=== PATIENT | female | born 1990 | race Caucasian/White ===

== ENCOUNTER 2016-03-27 14:47 | Inpatient (IN) | payer OTHER ==
[2016-03-27 15:48] LABS: Benzodiazepine Urine Screen None Detected (None Detect)
[2016-03-27 15:51] LABS: Hematocrit 41 % (35-47); Hemoglobin 14.5 g/dl (12.0-16.0); Mean Corpuscular HGB Conc 35 g/dl (31-36); Mean Corpuscular Hemoglobin 32 pg (27-31); Mean Corpuscular Volume 90 fL (80-97); Mean Platelet Volume 8 um3 (7.4-10.4); Red Blood Count 4.56 10^6/ul (4.0-5.4); Red Cell Distribution Width 12 % (10.5-15); White Blood Count 5.8 10^3/ul (3.5-10.8)
[2016-03-27 15:55] LABS: Urine Bacteria 1+ (Absent); Urine Bilirubin Negative (Negative); Urine Glucose Negative (Negative); Urine Nitrite Negative (Negative)
[2016-03-27] MEDS ORDERED: Ibuprofen TAB* 600 MG PO ONE (16:03)
[2016-03-27 16:05] LABS: ALT 13 U/L (7-52); AST 12 U/L (13-39); Albumin 4.7 g/dL (3.2-5.2); Alkaline Phosphatase 40 U/L (34-104); Anion Gap 7 mmol/L (2-11); BUN/Creatinine Ratio 10.3 (8-20); Blood Urea Nitrogen 6 mg/dL (6-24); CO2 Carbon Dioxide 29 mmol/L (22-32); Calcium 9.3 mg/dL (8.6-10.3); Chloride 103 mmol/L (101-111); EGFR African American 161.6 (>60); EGFR Non-African American 125.7 (>60); Globulin 2.5 g/dL (2-4); Glucose 112 mg/dL (70-100); Sodium 139 mmol/L (133-145); Total Protein 7.2 g/dL (6.4-8.9)
[2016-03-27 16:25] LABS: Acetaminophen < 15 mcg/mL; Alcohol < 10 mg/dL (<10); Salicylate < 2.50 mg/dL (<30)
[2016-03-27 16:29] LABS: TSH (Thyroid Stimulating Horm) 0.98 mcIU/mL (0.34-5.60)
--- NOTE | 2016-03-27 16:44 | ED ---
Psychiatric Complaint - HPI Summary HPI Summary: Patient presents with feeling of depression. She does not clearly define for me what started this or what exactly she feels sad about. She mentions feeling like "others" are picking on her and she feels that she should be able to fix what is wrong. She denies actual SI or HI. She had a therapist years ago and is not taking daily medication, although she has prescriptions for adderall and clonipin. - History Of Current Complaint Hx Obtained From: Patient ?: No Onset/Duration: Gradual Onset Timing: Constant Severity Initially: Severe Severity Currently: Severe Character: Depressed Aggravating Factor(s): Nothing Alleviating Factor(s): Nothing Associated Signs And Symptoms: Positive: Sleep Disturbance Related History: Positive For: Prior Psychiatric Issues <Sharan Alvarez - Last Filed: 03/27/16 16:40> <Ghanshyam Bazan - Last Filed: 03/29/16 09:04> - History Of Current Complaint Chief Complaint: EDMentalHealth Time Seen by Provider: 03/27/16 15:08 - Allergies/Home Medications Allergies/Adverse Reactions: Allergies Allergy/AdvReac Type Severity Reaction Status Date / Time No Known Allergies Allergy Verified 03/27/16 15:04 PMH/Surg Hx/FS Hx/Imm Hx Psychiatric History: Reports: Hx Depression Infectious Disease History: No Infectious Disease History: Denies: Traveled Outside the [place] in Last 30 Days - Family History Known Family History: Positive: None - Social History Lives: With Family Alcohol Use: Occasionally Substance Use Type: Reports: Cocaine, Marijuana Substance Use Comment - Amount & Last Used: hx of use Smoking Status (MU): Current Every Day Smoker Cessation Counseling: Patient Advised to Stop <Sharan Alvarez - Last Filed: 03/27/16 16:40> Review of Systems Positive: Depressed All Other Systems Reviewed And Are Negative: Yes <Sharan Alvarez - Last Filed: 03/27/16 16:40> Physical Exam Triage Information Reviewed: Yes Vital Signs On Initial Exam: Initial Vitals Temp Pulse Resp BP Pulse Ox 99.7 F 81 16 122/84 100 03/27/16 14:57 03/27/16 14:57 03/27/16 14:57 03/27/16 14:57 03/27/16 14:57 Vital Signs Reviewed: Yes Appearance: Positive: Well-Appearing, No Pain Distress, Thin Skin: Positive: Warm, Skin Color Reflects Adequate Perfusion, Dry, Soft Head/Face: Positive: Normal Head/Face Inspection Eyes: Positive: EOMI, KAT, Conjunctiva Clear ENT: Positive: Hearing grossly normal Neck: Positive: Supple, Nontender, No Lymphadenopathy Respiratory/Lung Sounds: Positive: Clear to Auscultation, Breath Sounds Present Cardiovascular: Positive: Tachycardia Abdomen Description: Positive: Nontender, Soft Bowel Sounds: Positive: Present Musculoskeletal: Positive: Strength/ROM Intact. Negative: Edema Left, Edema Right Neurological: Positive: Sensory/Motor Intact, Alert, Oriented to Person Place, Time, NV Bundle Intact Distally, Normal Gait Psychiatric: Positive: Depressed AVPU Assessment: Alert - Transfer Coma Scale Coma Scale Total: 15 <Sharan Alvarez - Last Filed: 03/27/16 16:40> Vital Signs On Initial Exam: Initial Vitals Temp Pulse Resp BP Pulse Ox 99.7 F 81 16 122/84 100 03/27/16 14:57 03/27/16 14:57 03/27/16 14:57 03/27/16 14:57 03/27/16 14:57 <Ghanshyam Bazan - Last Filed: 03/29/16 09:04> Diagnostics - Vital Signs Vital Signs Temp Pulse Resp BP Pulse Ox 03/27/16 14:57 99.7 F 81 16 122/84 100 - Laboratory Lab Results: Lab Results 03/27/16 03/27/16 03/27/16 Range/Units 15:20 15:20 15:36 WBC 5.8 (3.5-10.8) 10^3/ul RBC 4.56 (4.0-5.4) 10^6/ul Hgb 14.5 (12.0-16.0) g/dl Hct 41 (35-47) % MCV 90 (80-97) fL MCH 32 H (27-31) pg MCHC 35 (31-36) g/dl RDW 12 (10.5-15) % Plt Count 174 (150-450) 10^3/ul MPV 8 (7.4-10.4) um3 Neut % (Auto) 55.9 (38-83) % Lymph % (Auto) 32.8 (25-47) % [place] % (Auto) 8.1 (1-9) % Eos % (Auto) 2.6 (0-6) % Baso % (Auto) 0.6 (0-2) % Absolute Neuts (auto) 3.3 (1.5-7.7) 10^3/ul Absolute Lymphs (auto) 1.9 (1.0-4.8) 10^3/ul Absolute Monos (auto) 0.5 (0-0.8) 10^3/ul Absolute Eos (auto) 0.2 (0-0.6) 10^3/ul Absolute Basos (auto) 0 (0-0.2) 10^3/ul Absolute Nucleated RBC 0 10^3/ul Nucleated RBC % 0 Sodium (133-145) mmol/L Potassium (3.5-5.0) mmol/L Chloride (101-111) mmol/L Carbon Dioxide (22-32) mmol/L Anion Gap (2-11) mmol/L BUN (6-24) mg/dL Creatinine (0.51-0.95) mg/dL Est GFR ( Amer) (>60) Est GFR (Non-Af Amer) (>60) BUN/Creatinine Ratio (8-20) Glucose (70-100) mg/dL Calcium (8.6-10.3) mg/dL Total Bilirubin (0.2-1.0) mg/dL AST (13-39) U/L ALT (7-52) U/L Alkaline Phosphatase (34-104) U/L Total Protein (6.4-8.9) g/dL Albumin (3.2-5.2) g/dL Globulin (2-4) g/dL Albumin/Globulin Ratio (1-3) TSH (0.34-5.60) mcIU/mL Urine Color Yellow Urine Appearance Clear Urine pH 8.0 (5-9) Ur Specific [place] 1.005 L (1.010-1.030) Urine Protein Negative (Negative) Urine Ketones Negative (Negative) Urine Blood 3+ H (Negative) Urine Nitrate Negative (Negative) Urine Bilirubin Negative (Negative) Urine Urobilinogen Negative (Negative) Ur Leukocyte Esterase 1+ H (Negative) Urine WBC (Auto) 1+(6-10/hpf) H (Absent) Urine RBC (Auto) 3+(>10/hpf) H (Absent) Ur Squamous Epith Cells Present H (Absent) Urine Bacteria 1+ H (Absent) Urine Glucose Negative (Negative) Salicylates (<30) mg/dL Urine Opiates Screen None detected (None Detect) Acetaminophen mcg/mL Ur Barbiturates Screen None detected (None Detect) Ur Phencyclidine Scrn None detected (None Detect) Ur Amphetamines Screen None detected (None Detect) U Benzodiazepines Scrn None detected (None Detect) Urine Cocaine Screen None detected (None Detect) U Cannabinoids Screen None detected (None Detect) Serum Alcohol (<10) mg/dL 03/27/16 Range/Units 15:36 WBC (3.5-10.8) 10^3/ul RBC (4.0-5.4) 10^6/ul Hgb (12.0-16.0) g/dl Hct (35-47) % MCV (80-97) fL MCH (27-31) pg MCHC (31-36) g/dl RDW (10.5-15) % Plt Count (150-450) 10^3/ul MPV (7.4-10.4) um3 Neut % (Auto) (38-83) % Lymph % (Auto) (25-47) % [place] % (Auto) (1-9) % Eos % (Auto) (0-6) % Baso % (Auto) (0-2) % Absolute Neuts (auto) (1.5-7.7) 10^3/ul Absolute Lymphs (auto) (1.0-4.8) 10^3/ul Absolute Monos (auto) (0-0.8) 10^3/ul Absolute Eos (auto) (0-0.6) 10^3/ul Absolute Basos (auto) (0-0.2) 10^3/ul Absolute Nucleated RBC 10^3/ul Nucleated RBC % Sodium 139 (133-145) mmol/L Potassium 4.0 (3.5-5.0) mmol/L Chloride 103 (101-111) mmol/L Carbon Dioxide 29 (22-32) mmol/L Anion Gap 7 (2-11) mmol/L BUN 6 (6-24) mg/dL Creatinine 0.58 (0.51-0.95) mg/dL Est GFR ( Amer) 161.6 (>60) Est GFR (Non-Af Amer) 125.7 (>60) BUN/Creatinine Ratio 10.3 (8-20) Glucose 112 H (70-100) mg/dL Calcium 9.3 (8.6-10.3) mg/dL Total Bilirubin 0.80 (0.2-1.0) mg/dL AST 12 L (13-39) U/L ALT 13 (7-52) U/L Alkaline Phosphatase 40 (34-104) U/L Total Protein 7.2 (6.4-8.9) g/dL Albumin 4.7 (3.2-5.2) g/dL Globulin 2.5 (2-4) g/dL Albumin/Globulin Ratio 1.9 (1-3) TSH 0.98 (0.34-5.60) mcIU/mL Urine Color Urine Appearance Urine pH (5-9) Ur Specific [place] (1.010-1.030) Urine Protein (Negative) Urine Ketones (Negative) Urine Blood (Negative) Urine Nitrate (Negative) Urine Bilirubin (Negative) Urine Urobilinogen (Negative) Ur Leukocyte Esterase (Negative) Urine WBC (Auto) (Absent) Urine RBC (Auto) (Absent) Ur Squamous Epith Cells (Absent) Urine Bacteria (Absent) Urine Glucose (Negative) Salicylates < 2.50 (<30) mg/dL Urine Opiates Screen (None Detect) Acetaminophen < 15 mcg/mL Ur Barbiturates Screen (None Detect) Ur Phencyclidine Scrn (None Detect) Ur Amphetamines Screen (None Detect) U Benzodiazepines Scrn (None Detect) Urine Cocaine Screen (None Detect) U Cannabinoids Screen (None Detect) Serum Alcohol < 10 (<10) mg/dL Result Diagrams: 03/27/16 15:36 03/27/16 15:36 Lab Statement: Any lab studies that have been ordered have been reviewed, and results considered in the medical decision making process. <Sharan Alvarez - Last Filed: 03/27/16 16:40> - Vital Signs Vital Signs Temp Pulse Resp BP Pulse Ox 03/27/16 17:01 98.9 F 71 16 110/69 100 03/27/16 14:57 99.7 F 81 16 122/84 100 - Laboratory Lab Results: Lab Results 03/27/16 03/27/16 03/27/16 Range/Units 15:20 15:20 15:36 WBC 5.8 (3.5-10.8) 10^3/ul RBC 4.56 (4.0-5.4) 10^6/ul Hgb 14.5 (12.0-16.0) g/dl Hct 41 (35-47) % MCV 90 (80-97) fL MCH 32 H (27-31) pg MCHC 35 (31-36) g/dl RDW 12 (10.5-15) % Plt Count 174 (150-450) 10^3/ul MPV 8 (7.4-10.4) um3 Neut % (Auto) 55.9 (38-83) % Lymph % (Auto) 32.8 (25-47) % [place] % (Auto) 8.1 (1-9) % Eos % (Auto) 2.6 (0-6) % Baso % (Auto) 0.6 (0-2) % Absolute Neuts (auto) 3.3 (1.5-7.7) 10^3/ul Absolute Lymphs (auto) 1.9 (1.0-4.8) 10^3/ul Absolute Monos (auto) 0.5 (0-0.8) 10^3/ul Absolute Eos (auto) 0.2 (0-0.6) 10^3/ul Absolute Basos (auto) 0 (0-0.2) 10^3/ul Absolute Nucleated RBC 0 10^3/ul Nucleated RBC % 0 Sodium (133-145) mmol/L Potassium (3.5-5.0) mmol/L Chloride (101-111) mmol/L Carbon Dioxide (22-32) mmol/L Anion Gap (2-11) mmol/L BUN (6-24) mg/dL Creatinine (0.51-0.95) mg/dL Est GFR ( Amer) (>60) Est GFR (Non-Af Amer) (>60) BUN/Creatinine Ratio (8-20) Glucose (70-100) mg/dL Calcium (8.6-10.3) mg/dL Total Bilirubin (0.2-1.0) mg/dL AST (13-39) U/L ALT (7-52) U/L Alkaline Phosphatase (34-104) U/L Total Protein (6.4-8.9) g/dL Albumin (3.2-5.2) g/dL Globulin (2-4) g/dL Albumin/Globulin Ratio (1-3) TSH (0.34-5.60) mcIU/mL Urine Color Yellow Urine Appearance Clear Urine pH 8.0 (5-9) Ur Specific [place] 1.005 L (1.010-1.030) Urine Protein Negative (Negative) Urine Ketones Negative (Negative) Urine Blood 3+ H (Negative) Urine Nitrate Negative (Negative) Urine Bilirubin Negative (Negative) Urine Urobilinogen Negative (Negative) Ur Leukocyte Esterase 1+ H (Negative) Urine WBC (Auto) 1+(6-10/hpf) H (Absent) Urine RBC (Auto) 3+(>10/hpf) H (Absent) Ur Squamous Epith Cells Present H (Absent) Urine Bacteria 1+ H (Absent) Urine Glucose Negative (Negative) Salicylates (<30) mg/dL Urine Opiates Screen None detected (None Detect) Acetaminophen mcg/mL Ur Barbiturates Screen None detected (None Detect) Ur Phencyclidine Scrn None detected (None Detect) Ur Amphetamines Screen None detected (None Detect) U Benzodiazepines Scrn None detected (None Detect) Urine Cocaine Screen None detected (None Detect) U Cannabinoids Screen None detected (None Detect) Serum Alcohol (<10) mg/dL 03/27/16 Range/Units 15:36 WBC (3.5-10.8) 10^3/ul RBC (4.0-5.4) 10^6/ul Hgb (12.0-16.0) g/dl Hct (35-47) % MCV (80-97) fL MCH (27-31) pg MCHC (31-36) g/dl RDW (10.5-15) % Plt Count (150-450) 10^3/ul MPV (7.4-10.4) um3 Neut % (Auto) (38-83) % Lymph % (Auto) (25-47) % [place] % (Auto) (1-9) % Eos % (Auto) (0-6) % Baso % (Auto) (0-2) % Absolute Neuts (auto) (1.5-7.7) 10^3/ul Absolute Lymphs (auto) (1.0-4.8) 10^3/ul Absolute Monos (auto) (0-0.8) 10^3/ul Absolute Eos (auto) (0-0.6) 10^3/ul Absolute Basos (auto) (0-0.2) 10^3/ul Absolute Nucleated RBC 10^3/ul Nucleated RBC % Sodium 139 (133-145) mmol/L Potassium 4.0 (3.5-5.0) mmol/L Chloride 103 (101-111) mmol/L Carbon Dioxide 29 (22-32) mmol/L Anion Gap 7 (2-11) mmol/L BUN 6 (6-24) mg/dL Creatinine 0.58 (0.51-0.95) mg/dL Est GFR ( Amer) 161.6 (>60) Est GFR (Non-Af Amer) 125.7 (>60) BUN/Creatinine Ratio 10.3 (8-20) Glucose 112 H (70-100) mg/dL Calcium 9.3 (8.6-10.3) mg/dL Total Bilirubin 0.80 (0.2-1.0) mg/dL AST 12 L (13-39) U/L ALT 13 (7-52) U/L Alkaline Phosphatase 40 (34-104) U/L Total Protein 7.2 (6.4-8.9) g/dL Albumin 4.7 (3.2-5.2) g/dL Globulin 2.5 (2-4) g/dL Albumin/Globulin Ratio 1.9 (1-3) TSH 0.98 (0.34-5.60) mcIU/mL Urine Color Urine Appearance Urine pH (5-9) Ur Specific [place] (1.010-1.030) Urine Protein (Negative) Urine Ketones (Negative) Urine Blood (Negative) Urine Nitrate (Negative) Urine Bilirubin (Negative) Urine Urobilinogen (Negative) Ur Leukocyte Esterase (Negative) Urine WBC (Auto) (Absent) Urine RBC (Auto) (Absent) Ur Squamous Epith Cells (Absent) Urine Bacteria (Absent) Urine Glucose (Negative) Salicylates < 2.50 (<30) mg/dL Urine Opiates Screen (None Detect) Acetaminophen < 15 mcg/mL Ur Barbiturates Screen (None Detect) Ur Phencyclidine Scrn (None Detect) Ur Amphetamines Screen (None Detect) U Benzodiazepines Scrn (None Detect) Urine Cocaine Screen (None Detect) U Cannabinoids Screen (None Detect) Serum Alcohol < 10 (<10) mg/dL Result Diagrams: 03/27/16 15:36 03/27/16 15:36 Lab Statement: Any lab studies that have been ordered have been reviewed, and results considered in the medical decision making process. <Ghanshyam Bazan - Last Filed: 03/29/16 09:04> Course/Dx - Differential Dx/Clinical Impression Differential Diagnosis/HQI/PQRI: Positive: Acute Psychosis, Anxiety, Bipolar Disorder, Depression, Schizophrenia, Suicidal Ideation - Physician Notifications Patient Is Medically Stable For: Psych Evaluation <Sharan Alvarez - Last Filed: 03/27/16 16:40> <Ghanshyam Bazan - Last Filed: 03/29/16 09:04> - Differential Dx/Clinical Impression Provider Diagnosis: Persistent mood [affective] disorder, unspecified, Psychosis Discharge <Shraan Alvarez - Last Filed: 03/27/16 16:40> <Ghanshyam Bazan - Last Filed: 03/29/16 09:04> - Discharge Plan Condition: Stable Disposition: ADMITTED TO [facility]
[2016-03-27] MEDS ORDERED: Acetaminophen TAB* 325 MG PO PRN (21:50)
[2016-03-27] MEDS ORDERED: Al Hydrox/Mg Hydrox/Simet LIQ* 30 ML UDC PO PRN (21:50)
[2016-03-27] MEDS ORDERED: chlorproMAZINE TAB* 100 MG PO ONE (22:00)
--- NOTE | 2016-03-28 11:50 | PN ---
MHU: Group Therapy Note - Service Type Service Type: [id number] Group Psychotherapy - Cognitive Behavioral Group Therapy ( CBT):Patient attended CBT programming this morning and presented with flat affect that did not vary with discussion. Although responsive to direct prompts to respond to questions, patient did not engage in spontaneous conversation.
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
[2016-03-28] MEDS: Vitamin THERAPEUTIC TAB PO SCH (12:56)
[2016-03-28] MEDS ORDERED: risperiDONE TAB* 1 MG PO ONE (14:10)
--- NOTE | 2016-03-29 08:54 | PN ---
Subjective - Subjective Service Type: 83710 Hosp care 25 min moderate complexity Subjective: Sridhar reports doing better. Still has overvalued ideas of others having hypnotic influence on her, but denies current persecutory ideas. Agrees with treatment plan, hopes to go home soon. She responded very well to cognitive/insight oriented approach to her symptoms. Objective - Appearance Appearance: Thin Framed Hygiene: Normal Grooming: Well Kept - Behavior Psychomotor Activities: Normal - Attitude and Relatedness Attitude and Relatedness: Cooperative Eye Contact: Good - Speech Quality: Unpressured Latencies: Normal Quantity: Appropriate - Mood Patient's Decription of Mood: "Okay" - Affect Observed Affect: Non-labile Affect Consistent with: Dysphoria - mild - Thought Process Patient's Thought Process: Coherent Thought Content: Yes Paranoid Ideation - mild, No Passive Wish, No Suicidal Planning, No Homicidal Ideation - Sensorium Experiencing Hallucinations: No, Sensorium is Clear - Level of Consciousness Level of Consciousness: Alert - Impulse Control Impulse Control: Intact - Insight and Judgement Insight and Judgement: Fair Assessment - Assessment Merits Inpatient Hospitalization: For Stabilization, To Initiate Treatment, For Ongoing Evaluation, Consolidate Improvements, For Discharge Planning Inpatient DSM-IV Dx: Psychotic disorder, not otherwise specified; rule out schizophreniform disorder; rule out substance-induced psychotic disorder; rule out psychosis secondary to general medical condition or rule out bipolar spectrum disorder. Clinical Impression: First psychiatric hospitalization for this 25-year-old female with a history of substance use, family history of psychotic disorder, and consideration for ADHD and anxiety. She was admitted to the Psychiatric Unit in an acutely psychotic state. It appeared that she has had paranoid ideation over the course of several months, more or less; with some recent ideas of harming herself out of distress. Stabilizing here. Safe on checks, free of suicidal ideation. Psychosis is milder, with evidence of some reality testing, milder delusional intensity. Medication management is with low dose risperidone. Evaluation plans MRI/EEG. Plan - Plan Treatment Plan: Name: SRIDHAR GARCIA Birthdate: 1990 [id number] Continued Medication Management: Start Medication Medications: Current Medications Acetaminophen (Tylenol Tab*) 650 mg PO Q4H PRN PRN Reason: PAIN or TEMP > 101 F Al Hydrox/Mg Hydrox/Simethicone (Maalox Plus*) 30 ml PO Q4H PRN PRN Reason: INDIGESTION Multivitamins (Theragran Tab*) 1 tab PO DAILY IRASEMA Last Admin: 03/28/16 12:56 Dose: Not Given - Discharge Plan Discharge Plan: Outpatient Follow Up
[2016-03-29] MEDS: risperiDONE TAB* 1 MG PO SCH ×2 (09:39→20:20)
[2016-03-29] MEDS: Vitamin THERAPEUTIC TAB PO SCH (09:39)
--- NOTE | 2016-03-29 15:07 | RAD ---
HISTORY: New psychosis increased paranoia and depression COMPARISONS: None TECHNIQUE: The following sequences were obtained of the head: Sagittal T1-weighted images, axial T2-weighted images, axial FLAIR images, axial susceptibility weighted images, axial T1-weighted images. Additionally, axial diffusion-weighted images were obtained with calculated apparent diffusion coefficients. FINDINGS: HEMORRHAGE/INFARCT: There is no hemorrhage or acute infarct. MASSES/SHIFT: There is no mass or shift. EXTRA-AXIAL SPACES/MENINGES: There are no extra-axial fluid collections. SULCI AND VENTRICLES: The sulci and ventricles are normal in size and position for the patient's stated age. CEREBRUM: There are no focal parenchymal abnormalities. BRAINSTEM: There are no focal parenchymal abnormalities. CEREBELLUM: There are no focal parenchymal abnormalities. The cerebellar tonsils are normal in size and position. SELLA: The sella is normal. PINEAL: The pineal region is clear. CP ANGLE/TEMPORAL BONES: The labyrinthine structures are grossly normal. VESSELS: Normal flow-voids are noted within the visualized vertebral vasculature. DIFFUSION ABNORMALITIES: There are no diffusion abnormalities. PARANASAL SINUSES/MASTOIDS: The paranasal sinuses are clear. ORBITS: The orbits are unremarkable. BONES AND SOFT TISSUE: No bone or soft tissue abnormalities are noted. OTHER: None IMPRESSION: NORMAL BRAIN
[2016-03-30] MEDS: Vitamin THERAPEUTIC TAB PO SCH (09:17)
[2016-03-30] MEDS: risperiDONE TAB* 1 MG PO SCH ×2 (09:18→20:22)
--- NOTE | 2016-03-30 11:29 | PN ---
Subjective - Subjective Service Type: 23510 Hosp care 15 min low complexity Subjective: Sridhar reports doing well. Makes no delusional statements, and denies current IOR or paranoid thoughts. Said she notes a little sedation with Risperdal. Feels hospitalization is not needed. She asks for an antidepressant, saying mood has been "low" for many months and ( with some insight) said that has possibly made paranoia more intense. She consented to sertraline after hearing its profile, and to ongoing risperidone use. Objective - Appearance Appearance: Thin Framed Hygiene: Normal Grooming: Well Kept - Behavior Psychomotor Activities: Normal - Attitude and Relatedness Attitude and Relatedness: Superficially Cooperative Eye Contact: Good - Speech Quality: Unpressured Latencies: Normal Quantity: Appropriate - Mood Patient's Decription of Mood: "Okay" - Affect Observed Affect: Non-labile Affect Consistent with: Euthymia - Thought Process Patient's Thought Process: Coherent, Impoverished Thought Content: No Passive Wish, No Suicidal Planning, No Homicidal Ideation, No Paranoid Ideation - Sensorium Experiencing Hallucinations: No, Sensorium is Clear - Level of Consciousness Level of Consciousness: Alert - Impulse Control Impulse Control: Intact - Insight and Judgement Insight and Judgement: Fair Assessment - Assessment Merits Inpatient Hospitalization: To Initiate Treatment, For Ongoing Evaluation , Consolidate Improvements, For Discharge Planning Inpatient DSM-IV Dx: Psychotic disorder, not otherwise specified; rule out schizophreniform disorder; rule out substance-induced psychotic disorder; rule out psychosis secondary to general medical condition or rule out bipolar spectrum disorder. Clinical Impression: First psychiatric hospitalization for this 25-year-old female with a history of substance use, family history of psychotic disorder, and consideration for ADHD and anxiety. She was admitted to the Psychiatric Unit in an acutely psychotic state. It appeared that she has had paranoid ideation over the course of several months, more or less; with some recent ideas of harming herself out of distress. Stabilized here. Safe on checks, free of suicidal ideation. Psychosis is progressively milder, with evidence of some reality testing, some insight, and reduced delusional intensity of ideas. Medication management is with low dose risperidone, and adding sertraline. Evaluation includes MRI (was a normal brain study) and EEG - pending. Plan - Plan Treatment Plan: Name: SRIDHAR GARCIA Birthdate: 1990 [id number] Continued Medication Management: Start Medication Medications: Current Medications Acetaminophen (Tylenol Tab*) 650 mg PO Q4H PRN PRN Reason: PAIN or TEMP > 101 F Al Hydrox/Mg Hydrox/Simethicone (Maalox Plus*) 30 ml PO Q4H PRN PRN Reason: INDIGESTION Multivitamins (Theragran Tab*) 1 tab PO DAILY [facility] Last Admin: 03/30/16 09:17 Dose: 1 tab Risperidone (Risperdal*) 1 mg PO BID [facility] Last Admin: 03/30/16 09:18 Dose: 1 mg - Discharge Plan Discharge Plan: Outpatient Follow Up
[2016-03-31] MEDS: Sertraline* 25 MG TAB PO SCH (09:11)
[2016-03-31] MEDS: risperiDONE TAB* 1 MG PO SCH ×2 (09:11→20:56)
[2016-03-31] MEDS: Vitamin THERAPEUTIC TAB PO SCH (09:11)
--- NOTE | 2016-03-31 09:40 | EEG ---
ELECTROENCEPHALOGRAPHY: DATE: 03/30/2016. PATIENT OF: Dr. Krishnan HISTORY: This is a 25-year-old woman with anxiety, ADHD, and odd thoughts. She feels that televisions and computers are giving her special ideas and has paranoid thinking as well. The study was done to evaluate for possible seizures. MEDICATIONS: Include Risperdal. REPORT: With the patient awake, background cerebral activity consists of moderate amplitude posterior dominant 11 Hz rhythm. The patient never falls asleep. No activation procedures are performed. No epileptiform potentials, focal abnormalities, or major asymmetries of background are noted. IMPRESSION: This awake EEG is within normal limits. [id number]/[facility] #: [id number] [facility]ITAL[facility]
[2016-03-31] MEDS ORDERED: Influenza VAC *QUAD* 2016-17* 0.5 ML SYRINGE IM ONE (11:00)
--- NOTE | 2016-03-31 12:02 | PN ---
Subjective - Subjective Service Type: 73381 Hosp care 25 min moderate complexity Subjective: Sridhar reports "much lower" distress levels since admission. She makes no delusional comments, and denies anyone harassing or persecuting her , denies ideas of reference. Notes good interaction with peers, staff. Acknowledges, vaguely, using more illicit drugs in last 2 weeks than she had initially admitted. Accepts feedback, diagnosis, treatment recommendations. We met with her parents, and gave info on clinical and risk concerns, evaluations, progress, and ongoing care plan and prognosis. We addressed all their questions and concerns, provided support, and heard their validation of the information and appreciation for care provided. Objective - Appearance Appearance: Thin Framed Hygiene: Normal Grooming: Well Kept - Behavior Psychomotor Activities: Normal - Attitude and Relatedness Attitude and Relatedness: Cooperative Eye Contact: Good - Speech Quality: Unpressured Latencies: Normal Quantity: Terse - Mood Patient's Decription of Mood: "Fine" - Affect Observed Affect: Non-labile Affect Consistent with: Euthymia - Thought Process Patient's Thought Process: Coherent Thought Content: No Passive Wish, No Suicidal Planning, No Homicidal Ideation, No Paranoid Ideation - Sensorium Experiencing Hallucinations: No, Sensorium is Clear - Level of Consciousness Level of Consciousness: Alert - Impulse Control Impulse Control: Intact - Insight and Judgement Insight and Judgement: Fair Assessment - Assessment Merits Inpatient Hospitalization: To Initiate Treatment, For Ongoing Evaluation , Consolidate Improvements, For Discharge Planning Inpatient DSM-IV Dx: Psychotic disorder, not otherwise specified; rule out schizophreniform disorder; rule out substance-induced psychotic disorder; rule out psychosis secondary to general medical condition or rule out bipolar spectrum disorder. Clinical Impression: First psychiatric hospitalization for this 25-year-old female with a history of substance use, family history of psychotic disorder, and consideration for ADHD and anxiety. She was admitted to the Psychiatric Unit in an acutely psychotic state. It appeared that she has had paranoid ideation over the course of several months, more or less; with some recent ideas of harming herself out of distress. Stabilized here. Safe on checks, free of suicidal ideation. Psychosis has been progressively milder, with evidence of improving, and now normal testing, improving insight, and reduced delusional intensity of persecutory ideas. Relatedness is much improved. Medication management is with low dose risperidone, and sertraline. Evaluation includes MRI (was a normal brain study) and EEG - Normal. Psych testing to follow. Given status and progress, expect d/c early next week. Plan - Plan Treatment Plan: Name: SRIDHAR GARCIA Birthdate: 1990 [id number] Continued Medication Management: Start Medication Medications: Current Medications Acetaminophen (Tylenol Tab*) 650 mg PO Q4H PRN PRN Reason: PAIN or TEMP > 101 F Al Hydrox/Mg Hydrox/Simethicone (Maalox Plus*) 30 ml PO Q4H PRN PRN Reason: INDIGESTION Multivitamins (Theragran Tab*) 1 tab PO DAILY [facility] Last Admin: 03/31/16 09:11 Dose: 1 tab Risperidone (Risperdal*) 1 mg PO BID [facility] Last Admin: 03/31/16 09:11 Dose: 1 mg Sertraline HCl (Zoloft*) 25 mg PO DAILY [facility] Last Admin: 03/31/16 09:11 Dose: 25 mg - Discharge Plan Discharge Plan: Outpatient Follow Up
[2016-04-01] MEDS: Sertraline* 25 MG TAB PO SCH (08:32)
[2016-04-01] MEDS: risperiDONE TAB* 1 MG PO SCH ×2 (08:32→20:02)
[2016-04-01] MEDS: Vitamin THERAPEUTIC TAB PO SCH (08:32)
--- NOTE | 2016-04-01 15:40 | PN ---
Subjective - Subjective Service Type: 02345 Hosp care 15 min low complexity Subjective: I reviewed Dr Krishnan's sign-out and staff notes since Sunday afternoon. Staff note she has been working on [employer]. We briefly discussed events leading to hospitalization. Although she notes reduced paranoia, she becomes distressed when thinking about past thought content (ie "the bizarre games people were playing with me"). She reports a cycle of negative thoughts/feelings that led to "paranoid conclusions." She feels "better" and rates both depression and anxiety as 3-4/10 (10 being the worst). Sleep is stable. Notes increased appetite. Daytime energy is "pretty good." Notes "some paranoia" but much improved compared to admission. Denies medication side effects or physical complaints. Denies SI or HI. Objective - Appearance Appearance: Thin Framed Dysmorphic Features: No Grooming: Fairly Well Kept - Behavior Psychomotor Activities: Normal Exhibits Abnormal Movement: No - Attitude and Relatedness Attitude and Relatedness: Cooperative Eye Contact: Fair - to poor - Speech Quality: Unpressured Latencies: Normal Quantity: Appropriate - Mood Patient's Decription of Mood: "Good" - Affect Observed Affect: Fair Affect Consistent with: Dysphoria - blunted - Thought Process Patient's Thought Process: Coherent, Goal Directed Thought Content: Yes Paranoid Ideation - improving, No Passive Wish, No Suicidal Planning, No Homicidal Ideation - Sensorium Experiencing Hallucinations: No, Sensorium is Clear - Level of Consciousness Level of Consciousness: Alert Orientation: Yes Intact, Yes Orientated to Time, Yes Orientated to Place, Yes Orientated to Person - Impulse Control Impulse Control: Intact - Insight and Judgement Insight and Judgement: Fair - Medication Management Medication Management Adherence: Yes - Additional Observations Comments: Vital Signs 04/01/16 09:11 Temperature 96.5 F Pulse Rate 91 Respiratory 16 Rate Blood Pressure 100/66 (mmHg) O2 Sat by Pulse 100 Oximetry Assessment - Assessment Merits Inpatient Hospitalization: For Stabilization, To Initiate Treatment, For Ongoing Evaluation, Consolidate Improvements, For Discharge Planning, Pending Safe DC Plan Inpatient DSM-IV Dx: Psychotic disorder, not otherwise specified; rule out schizophreniform disorder; rule out substance-induced psychotic disorder; rule out psychosis secondary to general medical condition or rule out bipolar spectrum disorder. Clinical Impression: 25yo female with a hx of substance use, potential ADHD and anxiety admitted for psychosis with SI. Symptoms improving on antipsychotic and SSRI. Plan - Plan Treatment Plan: Name: SRIDHAR GARCIA Birthdate: 1990 [id number] -continue current meds Medications: Current Medications Acetaminophen (Tylenol Tab*) 650 mg PO Q4H PRN PRN Reason: PAIN or TEMP > 101 F Al Hydrox/Mg Hydrox/Simethicone (Maalox Plus*) 30 ml PO Q4H PRN PRN Reason: INDIGESTION Multivitamins (Theragran Tab*) 1 tab PO DAILY [facility] Last Admin: 04/01/16 08:32 Dose: 1 tab Risperidone (Risperdal*) 1 mg PO BID [facility] Last Admin: 04/01/16 08:32 Dose: 1 mg Sertraline HCl (Zoloft*) 25 mg PO DAILY [facility] Last Admin: 04/01/16 08:32 Dose: 25 mg
[2016-04-02] MEDS: risperiDONE TAB* 1 MG PO SCH ×2 (08:58→21:50)
[2016-04-02] MEDS: Vitamin THERAPEUTIC TAB PO SCH (08:58)
[2016-04-02] MEDS: Sertraline* 25 MG TAB PO SCH (08:59)
[2016-04-03 07:53] VITALS: BP 94/59
[2016-04-03] MEDS: Vitamin THERAPEUTIC TAB PO SCH (08:51)
[2016-04-03] MEDS: Sertraline* 25 MG TAB PO SCH (08:51)
[2016-04-03] MEDS: risperiDONE TAB* 1 MG PO SCH (08:51)
--- NOTE | 2016-04-03 14:21 | DS ---
Subjective - Subjective Service Types: 02743 [facility] Day Mgmt simple under 30 min Discharge Date: 04/03/16 Subjective: Radha expressed readiness and eagerness for release. She made no delusional comments and had insight into prior thoughts that were considered paranoid. She denied side effects or somatic problems. She noted major decrease in distress, and said anxiety levels are controlled, she denied emotional pain or any wishes. We reviewed aftercare plan (clinic choice still pending) and medication profiles. She said she sees no barriers to routine care or emergency help if needed again. Objective - Appearance Appearance: Thin Framed Hygiene: Normal Grooming: Well Kept - Behavior Psychomotor Activities: Normal - Attitude and Relatedness Attitude and Relatedness: Appropriate Eye Contact: Good - Speech Quality: Unpressured Latencies: Normal Quantity: Terse - Mood Patient's Decription of Mood: "Fine" - Affect Observed Affect: Non-labile Affect Consistent with: Euthymia - Thought Process Patient's Thought Process: Coherent, Goal Directed Thought Content: No Passive Wish, No Suicidal Planning, No Homicidal Ideation, No Paranoid Ideation - Sensorium Experiencing Hallucinations: No, Sensorium is Clear - Level of Consciousness Level of Consciousness: Alert - Impulse Control Impulse Control: Intact - Insight and Judgement Insight and Judgement: Good Treatment Course & Assessment Clinical Course & Impression: First psychiatric hospitalization for this 25-year-old female with a history of substance use, family history of psychotic disorder, and consideration for ADHD and anxiety. She was admitted to the Psychiatric Unit in an acutely psychotic state. It appeared that she has had paranoid ideation over the course of several months, more or less; with some recent ideas of harming herself out of distress; and some recent illicit substance use. 04/03/16: Clear for release. Radha stabilized here. She made substantial clinical improvement and acute impairment is resolved. Behaviorally, she was safe on checks, cooperative with evaluations and tests, and adherent with routines. She demonstrated progressively lower distress levels and was consistently free of suicidal ideation. Her psychosis was progressively milder. It centered on persecutory delusions and ideas of reference. Delusional intensity is corrected. She maintained some level of (not overt) paranoid thought forms. She developed improving insight and her relatedness is much improved. Medication management is with low dose risperidone, and sertraline for mood symptoms and anxiety. Evaluation included MRI (was a normal brain study) and EEG (also normal). Psych testing with the MMPI was a valid study that correlated well clinically and suggested a psychotic process has been active. Given Radha's status and sustained progress, her request for discharge is reasonable, and she can pursue care on an outpatient basis. Risk concern centered on suicide risk. At this time acute risk is assessed as low, on basis of correction of impairment, and patients low symptom burden and benign behavior/ideation. On a longer term basis Radha's risk is elevated due to her condition and history. Clear for Discharge: Adequate Clinical Respons, Acceptable Safety Profile, Low Utility of Inpt Care Inpatient DSM-IV Dx: Psychotic disorder, not otherwise specified; rule out schizophreniform disorder; rule out substance-induced psychotic disorder; rule out psychosis secondary to general medical condition or rule out bipolar spectrum disorder. Discharge Planning - Discharge Planning Discharge Plan: Outpatient Follow Up Recommendations for Continuing Care: Medication Management, Psychotherapy, Substance Abuse Counseling, Routine Metabolic Monitoring Medications: Current Medications Risperidone (Risperdal*) 1 mg PO BID [facility] Last Admin: 04/03/16 08:51 Dose: 1 mg Sertraline HCl (Zoloft*) 25 mg PO DAILY [facility] Last Admin: 04/03/16 08:51 Dose: 25 mg Discharge Planning: Prescriptions provided for discharge [x] Yes [] No Follow up care details as per social work arrangements. Patient response to discharge plan: [x] eager for discharge [] agreeable with discharge plan [] ambivalent about discharge [] disagrees with discharge today
[2016-04-03] MEDS ORDERED: risperiDONE TAB* 1 MG PO SCH (21:00)
[2016-04-03] MEDS ORDERED: risperiDONE TAB* 2 MG PO SCH ×2 (21:00)
== END 2016-04-03 16:45 | disposition home or self-care (01) | DRG 885 ==
LOC: ED 14:47 → BSU 21:12
PROVIDERS: ADMIT Psychiatry & Neurology Psychiatry; ATTEND Psychiatry & Neurology Psychiatry
DX: F29 Unspecified psychosis not due to a substance or known physiological condition (principal); Z81.8 Family history of other mental and behavioral disorders
CPT/HCPCS: 36415; 70551; 80053; 80307; 80320; 80329; 81003; 81015; 84443; 85025; 87077; 87086; 87186; 90686; 90853; 95816; 99222; 99231; 99232; 99238; 99283; A9270-GY; G0480

== ENCOUNTER 2016-10-25 16:20 | Inpatient (IN) | payer OTHER ==
[2016-10-25] MEDS ORDERED: LORazepam TAB(*) 1 MG PO ONE (16:40)
[2016-10-25] MEDS ORDERED: Haloperidol INJ IV/IM* 5 MG/ML AMP IM ONE (16:40)
[2016-10-25] MEDS ORDERED: diPHENhydraMINE IV* 50 MG/ML 1 ml VIAL (BENADRYL) IM ONE (16:40)
[2016-10-25 17:41] LABS: Hematocrit 39 % (35-47); Hemoglobin 13.8 g/dl (12.0-16.0); Mean Corpuscular HGB Conc 35 g/dl (31-36); Mean Corpuscular Hemoglobin 32 pg (27-31); Mean Corpuscular Volume 91 fL (80-97); Mean Platelet Volume 8 um3 (7.4-10.4); Red Blood Count 4.33 10^6/ul (4.0-5.4); Red Cell Distribution Width 12 % (10.5-15); White Blood Count 4.7 10^3/ul (3.5-10.8)
[2016-10-25 17:56] LABS: ALT 9 U/L (7-52); AST 17 U/L (13-39); Albumin 4.5 g/dL (3.2-5.2); Alkaline Phosphatase 31 U/L (34-104); Anion Gap 6 mmol/L (2-11); BUN/Creatinine Ratio 23.9 (8-20); Blood Urea Nitrogen 17 mg/dL (6-24); CO2 Carbon Dioxide 26 mmol/L (22-32); Calcium 9.3 mg/dL (8.6-10.3); Chloride 105 mmol/L (101-111); EGFR Non-African American 99.5 (>60); Globulin 2.3 g/dL (2-4); Glucose 83 mg/dL (70-100); Potassium 4.1 mmol/L (3.5-5.0); Sodium 137 mmol/L (133-145); Total Protein 6.8 g/dL (6.4-8.9)
[2016-10-25 18:23] LABS: Acetaminophen < 15 mcg/mL; Alcohol < 10 mg/dL (<10); Salicylate < 2.50 mg/dL (<30)
[2016-10-25 18:33] LABS: TSH (Thyroid Stimulating Horm) 0.79 mcIU/mL (0.34-5.60)
[2016-10-26 08:21] LABS: Urine Bacteria 1+ (Absent); Urine Bilirubin Negative (Negative); Urine Glucose 1+(50 mg/dL) (Negative); Urine Nitrite Negative (Negative)
[2016-10-26 09:01] LABS: Benzodiazepine Urine Screen None Detected (None Detect)
--- NOTE | 2016-10-26 10:39 | ED ---
Progress - Progress Note Progress Note: 25 yo F brought in as 941 to be admitted per Dr. Mahan for unspecified psychosis. Involuntary papers signed. - Consult/PCP Time Called: 08:43 Course/Dx - Diagnoses Provider Diagnoses: Catatonia
[2016-10-26] MEDS ORDERED: Al Hydrox/Mg Hydrox/Simet LIQ* 30 ML UDC PO PRN (10:50)
[2016-10-26] MEDS ORDERED: Acetaminophen TAB* 325 MG PO PRN (10:50)
[2016-10-26] MEDS: risperiDONE TAB* 1 MG PO SCH (21:30)
[2016-10-27] MEDS: risperiDONE TAB* 1 MG PO SCH ×2 (12:54→21:49)
[2016-10-27] MEDS: Sertraline* 25 MG TAB PO SCH (12:54)
--- NOTE | 2016-10-27 22:29 | HP ---
PSYCHIATRIC HISTORY AND PHYSICAL: DATE OF ADMISSION: 10/26/16 JUSTIFICATION FOR ADMISSION: The patient is in need of 24-hour supervision and care secondary to psychotic functioning and inability to care for herself in a less restrictive setting. CHIEF COMPLAINT: "What does it mean when two people have children, is that the way it works." HISTORY OF PRESENT ILLNESS: The patient is a 25-year-old single white female with a history of psychotic illness, who was most recently hospitalized on the Behavioral Science Unit here at [facility] in March of 2016, who is brought back to the hospital by her parents due to their concerns that she has been increasingly psychotic, noncompliant with antipsychotic therapy and unable to care for herself. Apparently, the patient resides in [place], [place] with her boyfriend and he has been increasingly concerned about her behavior. She apparently discontinued oral risperidone therapy sometime in May and has been getting more paranoid and more disorganized. The patient's boyfriend contacted her parents, who encouraged him to bring her home to the [facility] on the way from [facility], their car was apparently pulled over by police after the two were arguing in the vehicle and the police made an offer at that point to bring her to a hospital for a psychiatric evaluation in [facility], however her parents were contacted by phone and they encouraged her to be released and driven home by her boyfriend so that they could bring her to [facility]. When she presented she asked bizarre questions to the crisis glove tagger such as "what planet are we on." Staff notes that she often has bizarre affect, prolonged speech latencies, and she has had inappropriate boundaries on our unit thus far, for example allowing an elderly male patient to touch her leg, in the vicinity of her groin and genital area. When I meet with her she has an extremely circumstantial diffuse thought process and at times she asks bizarre questions that are confusing. She seems to have little insight into her psychiatric illness and has been declining antipsychotic resumption up until this point. She is denying hallucinations but she makes several paranoid statements to the effect that other people are watching her. PAST PSYCHIATRIC HISTORY: The patient had her first psychiatric evaluation by Dr. Elliott Hoskins in her late adolescence and was diagnosed with ADHD and started on stimulant medications. These medications were continued by Dr. Mac Sanchez, who also prescribed her Klonopin as recently as one and a half years ago. She does indicate that she stopped seeing Dr. Sanchez upon moving to [facility]. She does note that she has had depressive episodes in the past and she seems to think that she has been diagnosed at least somewhere with bipolar. She indicates that she has seen a psychotherapist in [facility] on a few occasions. She has only had one prior psychiatric admission and that was at [facility] in March of 2016 under the service of Dr. Jose Krishnan, at that time she was stabilized on 1 mg of Risperdal p.o. b.i.d. prior med trials have including Adderall and Klonopin. PAST MEDICAL HISTORY: Noncontributory. MEDICATIONS: Currently none. ALLERGIES: There are no known drug allergies. SUBSTANCE ABUSE HISTORY: The patient reports experimenting with a lot of drugs including marijuana, ketamine, ecstasy, and cocaine. She does indicate that recently she has been abusing alcohol socially but denies any other drugs of abuse. Looking at her urine drug screen and seeing that it is negative for all substances tested. FAMILY HISTORY: She has one sister diagnosed with schizophrenia who has had multiple psychiatric hospitalizations here at [facility]. SOCIAL HISTORY: The patient grew up in [place] to an intact family. Her parents are still together and involved in her life. 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 She resides with her boyfriend of two years. She self identifies as bisexual. She has had arrests and is on current probation for charges pursuing to an episode in which she was found by police naked on a beach with small amounts of marijuana and ketamine. She denies any history of physical abuse or other forms of trauma. REVIEW OF SYSTEMS: The patient denies double vision or headaches. She denies sore throat, cough, chest pain, difficulty breathing. She denies abdominal pain , nausea, vomiting, diarrhea or constipation. She denies difficulty ambulating , enlarged lymph nodes, rashes, changes in weight or fever. PHYSICAL EXAMINATION VITAL SIGNS: Blood pressure 122/75, heart rate 86, respiratory rate 16, temperature 98.9 degrees Fahrenheit, oxygen saturations are 97% on room air. HEENT: Head is normocephalic, atraumatic. NECK: Supple. CHEST: Clear to auscultation bilaterally. CARDIAC: Exam reveals normal heart sounds. ABDOMEN: Soft, nontender. SKIN: Warm and dry. MUSCULOSKELETAL: Reveals no evidence of edema. NEUROLOGIC: She is grossly intact with no focal deficits. LABORATORY DATA: As follows; CBC is within normal limits as is her complete metabolic panel. Urine drug screen is positive for trace leukocyte esterases, 3 + red blood cells, and 1+ white blood cells, and 1+ glucose. Urine drug screen is negative for all substances tested including alcohol. MENTAL STATUS EXAM: The patient is a young, slender, petite white female, who is attractive, clean, and well groomed. She has got dyed blonde hair. She is calm, cooperative, makes fair eye contact although her gaze does track towards the window at times. Speech is soft, slow, but articulate. Mood is euthymic with what appeared to be a full affect, thought process is vague and diffuse, thought content is paranoid, delusional. She denies suicidal or homicidal ideations. She denies auditory or visual hallucinations. Insight and judgment appears to be grossly impaired given her lack of boundaries. Cognitively she is awake and alert with what appear to be an average intellect. DIAGNOSES: Cheshire I: Unspecified psychotic disorder, alcohol use disorder. Cheshire II: Deferred. Cheshire III: None. Cheshire IV: Moderate primary support stressors. Cheshire V: At this time is 30. IMPRESSION: The patient is a 25-year-old single bisexual white female with a history of a previous admission for psychosis who is brought back to the hospital by her parents due to paranoia and bizarre behavior in the setting of nonadherence with outpatient antipsychotic medication. She continues to refuse risperidone and appears to have very little insight into her mental illness. PLAN: The patient is admitted to the Adult Behavioral Health Unit where she is placed on q.30 minute checks for her own safety. We will resume risperidone 1 mg p.o. b.i.d. and after discussing the matter with her at length she does change her mind and states that she will accept resumption of this medication. We would like to have her parents involve for collateral information and to rally social support. We are going to have to find out a place either here in [place] or in [place], [place] where she can receive follow up psychiatric treatment. While she is here she is certainly encouraged to avail herself of all milieu activities, given her inappropriate boundaries we will keep her on intensive q.15 minute checks and monitor her safety at all times. [id number]/[facility] #: [id number] CARLITOS
[2016-10-28] MEDS: Sertraline* 25 MG TAB PO SCH (09:49)
[2016-10-28] MEDS: risperiDONE TAB* 1 MG PO SCH ×2 (09:49→21:34)
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
[2016-10-29] MEDS: risperiDONE TAB* 1 MG PO SCH ×2 (09:39→21:42)
[2016-10-29] MEDS: Sertraline* 25 MG TAB PO SCH (09:39)
--- NOTE | 2016-10-29 15:23 | PN ---
Subjective - Subjective Service Type: 89145 Hosp care 15 min low complexity Subjective: Sridhar continues to be guarded, evasive and unwilling to take meds. She doesn't believe she needs them and even have cheeked them at least once. Isolates self to he room. Objective - Appearance Appearance: Thin Framed Dysmorphic Features: No Hygiene: Normal Grooming: Fairly Well Kept - Behavior Psychomotor Activities: Normal Exhibits Abnormal Movement: No - Attitude and Relatedness Attitude and Relatedness: Superficially Cooperative Eye Contact: Fair - Speech Quality: Unpressured Latencies: Normal Quantity: Terse - Mood Patient's Decription of Mood: "Fine" - Affect Observed Affect: Constricted Affect Consistent with: Dysphoria - Thought Process Patient's Thought Process: Coherent Thought Content: Yes Paranoid Ideation, No Passive Wish, No Suicidal Planning, No Homicidal Ideation - Sensorium Experiencing Hallucinations: No, Sensorium is Clear Type of Hallucinations: Visual: No, Auditory: No, Command: No - Level of Consciousness Level of Consciousness: Alert Orientation: Yes Intact, Yes Orientated to Time, Yes Orientated to Place, Yes Orientated to Person - Impulse Control Impulse Control: Tenuous - Insight and Judgement Insight and Judgement: Impaired - Group Participation Particating in Group Activities: No - Medication Management Medication Management Adherence: Partial Assessment - Assessment Merits Inpatient Hospitalization: For Stabilization Plan - Plan Treatment Plan: Name: SRIDHAR GARCIA Birthdate: 1990 [id number] Continued Medication Management: Continue Outpt Medication Medications: Current Medications Acetaminophen (Tylenol Tab*) 650 mg PO Q4H PRN PRN Reason: for pain; or Temp >101 F Al Hydrox/Mg Hydrox/Simethicone (Maalox Plus*) 30 ml PO Q4H PRN PRN Reason: INDIGESTION Risperidone (Risperdal*) 1 mg PO BID [facility] Last Admin: 10/29/16 09:39 Dose: 1 mg Sertraline HCl (Zoloft*) 25 mg PO DAILY [facility] Last Admin: 10/29/16 09:39 Dose: 25 mg - Discharge Plan Discharge Plan: Consider Longer Term Tx
[2016-10-30] MEDS: Sertraline* 25 MG TAB PO SCH (09:55)
[2016-10-30] MEDS: risperiDONE TAB* 1 MG PO SCH ×2 (09:55→21:40)
--- NOTE | 2016-10-30 15:34 | PN ---
Subjective - Subjective Service Type: 00392 Hosp care 15 min low complexity Subjective: Patient is present in milieu but seclusive to self. She is cooperative with psychiatric interview. She denies side effects from current medication but does not notice a change in mood or thought processes. 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 Patient gives automobile and property underwriter a piece of paper that she says was written by her "physician" Dori Freed, PhD. This is a statement to be signed by treatment team to discharge her today. She requests that this be signed as soon as possible. Objective - Appearance Appearance: Thin Framed Dysmorphic Features: No Hygiene: Normal Grooming: Well Kept - Behavior Psychomotor Activities: Abnormal-Decreased Exhibits Abnormal Movement: No - Attitude and Relatedness Attitude and Relatedness: Psychotically Related Eye Contact: Fair - Speech Quality: Unpressured Latencies: Long Quantity: Appropriate - Mood Patient's Decription of Mood: "moderate to fine" - Affect Observed Affect: Good Affect Consistent with: Euthymia - Thought Process Patient's Thought Process: Impoverished Thought Content: No Passive Wish, No Suicidal Planning, No Homicidal Ideation, No Paranoid Ideation - Sensorium Experiencing Hallucinations: No, Sensorium is Clear Type of Hallucinations: Visual: No, Auditory: No, Command: No - Level of Consciousness Level of Consciousness: Alert Orientation: Yes Intact, Yes Orientated to Time, Yes Orientated to Place, Yes Orientated to Person - Impulse Control Impulse Control: Tenuous - Insight and Judgement Insight and Judgement: Poor - Group Participation Particating in Group Activities: Yes - Medication Management Medication Management Adherence: Yes - mouth checks by nursing staff Assessment - Assessment Merits Inpatient Hospitalization: For Immediate Safety, For Stabilization, For Discharge Planning, Pending Safe DC Plan Inpatient DSM-IV Dx: Unspecified psychotic d/o; r/o schizophreniform d/o; r/o substance induced psychotic d/o Clinical Impression: Sridhar is a 25yo female with 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 She was brought to [facility] under the advice of her parents when her domestic partner/boyfriend noted increasingly disorganized behavior in their home in [facility]. She has noted to cheek her risperidone while on the unit and nursing staff is now monitoring more closely. She continues to present as psychotically related and merits hospitalization for safety and stabilization. Plan - Plan Treatment Plan: Name: SRIDHAR GARCIA Birthdate: 1990 [id number] Continued Medication Management: Consider Medication Medications: Current Medications Acetaminophen (Tylenol Tab*) 650 mg PO Q4H PRN PRN Reason: for pain; or Temp >101 F Al Hydrox/Mg Hydrox/Simethicone (Maalox Plus*) 30 ml PO Q4H PRN PRN Reason: INDIGESTION Risperidone (Risperdal*) 1 mg PO BID [facility] Last Admin: 10/30/16 09:55 Dose: 1 mg Sertraline HCl (Zoloft*) 25 mg PO DAILY [facility] Last Admin: 10/30/16 09:55 Dose: 25 mg - Discharge Plan Discharge Plan: Consider Longer Term Tx Outpatient Program: lives in [place], [place]
[2016-10-31] MEDS: Sertraline* 25 MG TAB PO SCH (08:21)
[2016-10-31] MEDS: risperiDONE TAB* 1 MG PO SCH ×2 (08:21→19:33)
--- NOTE | 2016-10-31 13:11 | PN ---
Subjective - Subjective Subjective: Patient lying in bed during time designated by patient and naval surface fire support planner to meet as a team. She politely declined to meet. Per staff, she has been compliant with meds and intermittently attending groups. She visited with her mother last evening. Patient makes states indicative of paranoia and bizarre thoughts. She denies SI/HI/ and has been safe on all checks. She has not given consent for providers to discuss discharge planning. Objective - Appearance Appearance: Thin Framed Dysmorphic Features: Yes Hygiene: Normal Grooming: Fairly Well Kept - Behavior Psychomotor Activities: Abnormal-Decreased - psychomotor retardation Exhibits Abnormal Movement: Yes - Attitude and Relatedness Attitude and Relatedness: Withdrawn Eye Contact: Poor - Speech Quality: Unpressured Latencies: Long Quantity: Appropriate - Mood Patient's Decription of Mood: declined to interview - Affect Observed Affect: Depressed Affect Consistent with: Dysphoria - Thought Process Patient's Thought Process: Impoverished Thought Content: No Passive Wish, No Suicidal Planning, No Homicidal Ideation, No Paranoid Ideation - Sensorium Experiencing Hallucinations: No, Sensorium is Clear Type of Hallucinations: Visual: No, Auditory: No, Command: No - Level of Consciousness Level of Consciousness: Alert Orientation: Yes Intact, Yes Orientated to Time, Yes Orientated to Place, Yes Orientated to Person - Impulse Control Impulse Control: Tenuous - Insight and Judgement Insight and Judgement: Poor - Group Participation Particating in Group Activities: No Group Participation Comments: partial - Medication Management Medication Management Adherence: Yes Assessment - Assessment Merits Inpatient Hospitalization: For Immediate Safety, For Stabilization, For Discharge Planning, Pending Safe DC Plan Inpatient DSM-IV Dx: Unspecified psychotic d/o; r/o schizophreniform d/o; r/o substance induced psychotic d/o Clinical Impression: Sridhar is a 25yo female with 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 She was brought to [facility] under the advice of her parents when her domestic partner/boyfriend noted increasingly disorganized behavior in their home in [facility]. She has noted to cheek her risperidone while on the unit and nursing staff is now monitoring more closely. She continues to present as psychotically related and merits hospitalization for safety and stabilization. Will continue to request her consent to communicate with family members and potential outpatient providers. Plan - Plan Treatment Plan: Name: SRIDHAR GARCIA Birthdate: 1990 [id number] Continue medications as previously prescribed and monitor closely for adherence. Encourage supportive milieu and individual and group therapy. Monitor for mood and thought content. Continue q15min safety checks. Continued Medication Management: Start Medication Medications: Current Medications Acetaminophen (Tylenol Tab*) 650 mg PO Q4H PRN PRN Reason: for pain; or Temp >101 F Al Hydrox/Mg Hydrox/Simethicone (Maalox Plus*) 30 ml PO Q4H PRN PRN Reason: INDIGESTION Risperidone (Risperdal*) 1 mg PO BID [facility] Last Admin: 10/31/16 08:21 Dose: 1 mg Sertraline HCl (Zoloft*) 25 mg PO DAILY [facility] Last Admin: 10/31/16 08:21 Dose: 25 mg - Discharge Plan Discharge Plan: Outpatient Follow Up Outpatient Program: [facility]
[2016-11-01] MEDS: Sertraline* 25 MG TAB PO SCH (08:57)
[2016-11-01] MEDS: risperiDONE TAB* 1 MG PO SCH ×2 (08:57→21:42)
--- NOTE | 2016-11-01 10:54 | PN ---
Subjective - Subjective Service Type: 85254 Hosp care 25 min moderate complexity Subjective: Patient is in behavioral control and tolerates interview with SW and publicity writer. She apologizes for missing interview yesterday and cites that medications are mildly sedating. 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 She is receptive to staff explanation of risks/benefits of psychopharmacology. Patient agrees to discuss safety planning with her boyfriend via phone then allow SW to verify plans with him. Patient also agrees to return to previous therapist in [facility]. She expresses concern about loved ones and family members talking about her and having control over her. She is receptive to suggestions in regards to couples counseling to improve communication efforts. Patient denies SI or AH/VH. Objective - Appearance Appearance: Thin Framed Dysmorphic Features: No Hygiene: Normal Grooming: Well Kept - Behavior Psychomotor Activities: Normal Exhibits Abnormal Movement: No - Attitude and Relatedness Attitude and Relatedness: Cooperative Eye Contact: Good - Speech Quality: Unpressured Latencies: Normal Quantity: Appropriate - Mood Patient's Decription of Mood: "Okay" - Affect Observed Affect: Good Affect Consistent with: Euthymia - Thought Process Patient's Thought Process: Coherent, Goal Directed Thought Content: No Passive Wish, No Suicidal Planning, No Homicidal Ideation, No Paranoid Ideation - Sensorium Experiencing Hallucinations: No, Sensorium is Clear Type of Hallucinations: Visual: No, Auditory: No, Command: No - Level of Consciousness Level of Consciousness: Alert Orientation: Yes Intact, Yes Orientated to Time, Yes Orientated to Place, Yes Orientated to Person - Impulse Control Impulse Control: Intact - Insight and Judgement Insight and Judgement: Fair - Group Participation Particating in Group Activities: Yes - Medication Management Medication Management Adherence: Yes Assessment - Assessment Merits Inpatient Hospitalization: For Immediate Safety, For Stabilization, For Discharge Planning, Pending Safe DC Plan Inpatient DSM-IV Dx: Unspecified psychotic d/o; r/o schizophreniform d/o; r/o substance induced psychotic d/o Clinical Impression: Sridhar is a 25yo female with 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 She was brought to [facility] under the advice of her parents when her domestic partner/boyfriend noted increasingly disorganized behavior in their home in [place]. She has noted to cheek her risperidone while on the unit and nursing staff is now monitoring more closely. She continues to present as psychotically related and merits hospitalization for safety and stabilization. She is presenting more organized and linear in thought. Will discharge pending safety planning with boyfriend and outpatient providers. Plan - Plan Treatment Plan: Name: SRIDHAR GARCAI Birthdate: 1990 [id number] Change medications to be given at bedtime only and monitor closely for adherence. Encourage supportive milieu and individual and group therapy. Monitor for mood and thought content. Decrease observation to q30min to allow for use of comfort room and computer for discharge planning. Patient may participate in staff pass. Continued Medication Management: Different Medication Medications: Current Medications Acetaminophen (Tylenol Tab*) 650 mg PO Q4H PRN PRN Reason: for pain; or Temp >101 F Al Hydrox/Mg Hydrox/Simethicone (Maalox Plus*) 30 ml PO Q4H PRN PRN Reason: INDIGESTION Risperidone (Risperdal*) 1 mg PO BID IRASEMA Stop: 11/02/16 09:00 Last Admin: 11/01/16 08:57 Dose: 1 mg Risperidone (Risperdal*) 2 mg PO BEDTIME IRASEMA Sertraline HCl (Zoloft*) 25 mg PO DAILY IRASEMA Stop: 11/02/16 09:00 Last Admin: 11/01/16 08:57 Dose: 25 mg Sertraline HCl (Zoloft*) 25 mg PO BEDTIME IRASEMA - Discharge Plan Discharge Plan: Outpatient Follow Up Outpatient Program: Loreta Fermin in [place], [place]
[2016-11-02 08:06] VITALS: BP 96/55
[2016-11-02] MEDS: Sertraline* 25 MG TAB PO SCH (08:38)
[2016-11-02] MEDS: risperiDONE TAB* 1 MG PO SCH (08:38)
--- NOTE | 2016-11-02 13:14 | PN ---
MHU: Group Therapy Note - Service Type Service Type: 06987 Group Psychotherapy - Cognitive Behavioral Group Therapy ( CBT):Patient was attentive and participatory in CBT programming this morning, and remained in good behavioral control. Patient expressed positive insights regarding relevant treatment interventions and goals.
[2016-11-02] MEDS ORDERED: risperiDONE TAB* 1 MG PO SCH (21:00)
[2016-11-02] MEDS ORDERED: Sertraline* 25 MG TAB PO SCH (21:00)
--- NOTE | 2016-11-03 01:34 | DS ---
CC: Dr. Watts Member * DISCHARGE SUMMARY: DATE OF ADMISSION: 10/26/16 DATE OF DISCHARGE: 11/02/16 SUPERVISING PSYCHIATRIST: Dr. Mahesh Knox * (DICTATED BY COLT JAVIER NP) DISCHARGE DIAGNOSES: [place] I: Unspecified psychotic disorder, unspecified depressive disorder, rule out bipolar disorder, history of alcohol use disorder. [place] II: Deferred. [place] III: No active medical problem. [place] IV: Moderate stressors related to relationships with boyfriend, with parents and tenuous employment. [place] V: 50. CONDITION AT TIME OF DISCHARGE: Improved. Radha was cooperative with discharge planning in regards to communication with outpatient providers and family members. While on the unit, she had improved adherence with medications and was noted to have more linear conversations. She participated in unit programming, was interactive with selected peers. She denied suicidal ideations. She agrees to continue current medications and also inquires about increase of the antidepressant sertraline. She was receptive to suggestions of safety planning with her boyfriend and couple of counseling with her therapist in [facility]. MENTAL STATUS EXAM: The patient is a thin framed, white female, appears stated age. She is dressed in her own clothing, T-shirt and leggings. She is well groomed, cooperative and interactive. No psychomotor abnormality noted. She is alert and oriented x3. Concentration was good. Her mood was "okay." Affect was congruent. Speech was soft and articulate. Thought process was logical and goal directed. She discussed her ideas about disability of her current relationship with her boyfriend. Thought content was negative for SI or HI. She denied AH or VH. There was no evidence of thought distortions. Her insight is good. Judgment is fair. Fund of knowledge is good. Instructions were given to the patient and to her parents by nursing staff and equipment planner. MEDICATIONS: 1. Sertraline 50 mg p.o. at bedtime. 2. Risperidone 2 mg p.o. at bedtime. These were [facility] to [facility], 1-week supply. We discussed recommendations to avoid controlled substances such as stimulants or benzodiazepines as these were likely contributory to psychosis and depression. DIET: Regular. ACTIVITY: Ambulation as tolerated. Tobacco cessation not applicable. She denies tobacco use. There are no pending labs or diagnostic studies at the time of discharge. FOLLOWUP CARE: She has an appointment today with psychiatrist, Dr. Mac Sanchez, at 2:30 today and she has an appointment with Dr. Loreta Fermin, psychologist in [facility] next . HOSPITAL COURSE: A. Reason for admission: The patient was in need of 24-hour supervision and care secondary to psychotic functioning and inability to care for herself in a less restrictive setting. She was brought to the hospital by her parents due to the concerns that she has been increasingly psychotic and noncompliant with her medications. She lives with her boyfriend in [place], [place] and he had been increasingly concerned about her behavior. B. Psychiatric treatment rendered: The patient was admitted to the adult behavioral unit. She was placed on 15-minute checks for safety. Prior medications were resumed, risperidone 1 mg twice a day and her sertraline 25 mg daily. Early in the admission, it was noted that she was cheeking her medications and nursing staff monitored more closely for her medication adherence. The patient was encouraged to engage in supportive milieu, individual sessions with staff and psychoeducational groups. She had some bizarre interactions with staff and peers. She wrote out a letter that she wanted equipment planner and myself to sign that supposedly was a trauma psychologist demanding her discharge on 10/30/16. It turns out that she had written the letter and signed it with a name that was an anagram of her own name. Over the course of the week, she continued to present as more organized. She was cooperative with discharge planning and safety planning. She allowed equipment planner to contact her boyfriend to identify safe discharge plan. The patient was decreased to q.30-minute observation and allowed to have the staff pass. She did not appear to be at risk for elopement. She was safe on all checks. Denied suicidal ideations. She reported to sleep well and was present for groups and meals. The patient remains at a moderate risk for psychosis due to her history of poor followup and medications nonadherence. She has expressed concern about her boyfriend's parents communicating behind her back. community development planner and myself discussed ways for her to communicate with family members and loved ones until she continue medications to identify perceived versus real paranoia. The patient was discharged with her parents by equipment planner and belongings were returned to her. COLT JAVIER, INCOME TAX ADMINISTRATOR [id number]/[facility] #: [id number] [facility] MEDICAL CENTERMaria R
== END 2016-11-02 12:15 | disposition home or self-care (01) | DRG 885 ==
LOC: ED 16:20 → BSU 10-26 10:50
PROVIDERS: ADMIT Psychiatry & Neurology Psychiatry; ATTEND Psychiatry & Neurology Psychiatry
PROC: GZHZZZZ Group Psychotherapy (ICD-10-PCS; principal; 2016-10-26)
DX: F23 Brief psychotic disorder (principal); Z91.14 Patient's other noncompliance with medication regimen; F31.9 Bipolar disorder, unspecified; F90.9 Attention-deficit hyperactivity disorder, unspecified type; Z81.8 Family history of other mental and behavioral disorders; Z72.89 Other problems related to lifestyle; F41.9 Anxiety disorder, unspecified; F17.210 Nicotine dependence, cigarettes, uncomplicated
CPT/HCPCS: 36415; 80053; 80307; 80320; 80329; 81003; 81015; 84443; 85025; 87086; 90853; 99222; 99231; 99232; 99238; 99406; A9270-GY; G0480; J1200; J1630

== ENCOUNTER 2020-10-23 14:30 | Inpatient (IN) ==
[2020-10-23 16:31] LABS: ABS Eosinophils 0.2 10^3/ul (0-0.6); ABS Lymphocytes 1.9 10^3/ul (1.0-4.8); ABS Monocytes 0.4 10^3/ul (0-0.8); ABS Neutrophils 1.9 10^3/ul (1.5-7.7); Eosinophil % 3.5 %; Hematocrit 46 % (35-47); Hemoglobin 16.7 g/dL (12.0-16.0); Lymphocyte % 42.8 %; Mean Corpuscular HGB Conc 36 g/dL (31-36); Mean Corpuscular Hemoglobin 33 pg (27-31); Mean Corpuscular Volume 92 fL (80-97); Mean Platelet Volume 7.5 fL (7.4-10.4); Nucleated Red Blood Cells % 0.1; Platelet Count 211 10^3/uL (150-450); Red Blood Count 5.05 10^6 /uL (3.70-4.87); Red Cell Distribution Width 12 % (10-15); White Blood Count 4.4 10^3/uL (3.5-10.8)
[2020-10-23 16:45] LABS: ALT 12 U/L (7-52); AST 18 U/L (13-39); Albumin 5.2 g/dL (3.2-5.2); Albumin/Globulin Ratio 1.9 (1-3); Alkaline Phosphatase 44 U/L (35-149); Anion Gap 9 mmol/L (2-11); Blood Urea Nitrogen 13 mg/dL (6-24); CO2 Carbon Dioxide 27 mmol/L (22-32); Calcium 10.1 mg/dL (8.6-10.3); Chloride 103 mmol/L (101-111); EGFR African American 92.5 (>60); EGFR Non-African American 76.4 (>60); Globulin 2.7 g/dL (2-4); Glucose 103 mg/dL (70-100); Sodium 139 mmol/L (135-145); Total Protein 7.9 g/dL (6.4-8.9)
[2020-10-23 16:49] LABS: HCG Pregnancy < 0.60 mIU/mL
[2020-10-23 16:56] LABS: Acetaminophen < 15 mcg/mL; Alcohol, S < 10 mg/dL (<10); Salicylate < 2.50 mg/dL (<30)
[2020-10-23 17:09] LABS: TSH Ultra Thyroid Stim Horm 2.76 mcIU/mL (0.34-5.60)
[2020-10-23 20:38] LABS: Urine Appearance Cloudy; Urine Bilirubin Negative (Negative); Urine Blood Negative (Negative); Urine Color Amber; Urine Glucose Negative (Negative); Urine Ketones Negative (Negative); Urine Nitrite Negative (Negative); Urine Protein 2+(100 mg/dL) (Negative); Urine Specific Gravity 1.028 (1.002-1.030); Urine Urobilinogen Negative (Negative)
[2020-10-23 20:43] LABS: Urine Bacteria 1+ (Absent); Urine Red Blood Cell Trace(0-2/hpf) (Absent); Urine Squamous Epithelial Cell Present (Absent); Urine White Blood Cell Trace(0-5/hpf) (Absent)
[2020-10-23 21:03] LABS: Urine Benzodiazepine Screen Presumptive Positive (None Detect); Urine Cannabinoids Screen None Detected (None Detect); Urine Opiates Screen None Detected (None Detect)
[2020-10-23 21:58] LABS: Rapid COVID-19 Molecular Undetected (Undetected)
[2020-10-23] MEDS ORDERED: Al Hydrox/Mg Hydrox/Simet LIQ 30 ML UDC PO PRN (22:19)
[2020-10-23] MEDS ORDERED: risperiDONE-M 1 mg Oradis TAB PO ONE (22:30)
[2020-10-24] MEDS: Vitamin THERAPEUTIC TAB PO SCH (09:13)
[2020-10-25 08:02] LABS: HDL Cholesterol 31.6 mg/dL
[2020-10-25] MEDS: Vitamin THERAPEUTIC TAB PO SCH (11:51)
[2020-10-25] MEDS ORDERED: Paliperidone SUSTENNA 156 MG/1 ML IM ONE (12:52)
[2020-10-26] MEDS: Vitamin THERAPEUTIC TAB PO SCH (09:51)
[2020-10-27] MEDS: Vitamin THERAPEUTIC TAB PO SCH (09:26)
[2020-10-27] MEDS: HYDROcodone/ACETAMIN 5/325 mg TAB PO PRN ×2 (14:18→20:48)
[2020-10-27 20:22] VITALS: BP 114/67
== END 2020-10-27 21:02 | disposition short-term general hospital (02) | DRG 750 ==
LOC: ED 14:30 → BSU 20:46
PROVIDERS: ADMIT Psychiatry & Neurology Psychiatry; ATTEND Psychiatry & Neurology Psychiatry